=== PATIENT | female | born 1985 | race Caucasian/White ===

== ENCOUNTER 2025-03-08 15:51 | Emergency (ER) | payer OTHER ==
[~2025-03-08] VITALS: Ht 170.2 cm; Wt 88.0 kg
[2025-03-08 16:13] VITALS: BP 151/89; PULSE 84; RESP 18; TEMP 98.3; O2SAT 98
[2025-03-08 16:23] LABS: BASOPHIL # 0.1 10^3/uL (0.0-0.1); BASOPHIL % 0.4 % (0.1-1.2); EOSINOPHIL # 0.4 10^3/uL (0.0-0.2); EOSINOPHIL % 2.8 % (0.0-5.0); HEMATOCRIT(ML) 41.9 % (36.0-46.0); IG % 0.10 % (0.00-0.50); LYMPHOCYTES # 2.32 10^3/uL1 (1.0-4.8); LYMPHOCYTES % 16.8 % (24.0-44.0); MEAN CORP HGB 31.0 pg (26-34); MEAN CORP HGB CONCENTRATION 33.4 g/dL (33-36.5); MEAN CORP VOLUME 92.9 fL (78-100); MONOCYTES # 0.7 10^3/uL (0.3-0.8); MONOCYTES % 4.8 % (5.0-12.0); NEUTROPHIL # 10.4 10^3/uL (1.8-7.7); NEUTROPHILS % 75.1 % (41.0-85.0); RED BLOOD CELL 4.51 10^6/uL (4.00-5.20); RED CELL DISTRIBUTION WIDTH 11.8 % (11.5-14.5); WHITE BLOOD CELL 13.8 10^3/uL (4.5-11.0)
[2025-03-08 16:25] LABS: LEUKOCYTE ESTERASE ,URINE NEGATIVE (NEGATIVE); NITRATE,URINE NEGATIVE (NEGATIVE)
[2025-03-08 16:27] LABS: APPEARANCE,URINE CLEAR; UA COLOR YELLOW
[2025-03-08] MEDS ORDERED: MACROBID ONE (17:09)
[2025-03-08] MEDS: MACROBID PO STA (17:13)
[2025-03-08 17:50] VITALS: BP 148/84; PULSE 82; RESP 18; TEMP 98.3; O2SAT 98
[2025-03-08] MEDS ORDERED: NITR100C58 PO (17:51)
== END 2025-03-08 17:55 | disposition home or self-care (01) ==
LOC: ER 15:51
DX: O23.41 Unspecified infection of urinary tract in pregnancy, first trimester (principal); N39.0 Urinary tract infection, site not specified; O20.9 Hemorrhage in early pregnancy, unspecified; R10.20 Pelvic and perineal pain unspecified side; Z3A.10 10 weeks gestation of pregnancy
CPT/HCPCS: 36415; 76801; 76802; 76817; 81001; 84702; 85025; 87086; 99284